=== PATIENT | female | born 1950 | race Caucasian/White ===

== ENCOUNTER 2017-04-11 12:58 | Emergency (ER) | payer MEDICARE, BC ==
[~2017-04-11] VITALS: Ht 160 cm; Wt 84.0 kg
[2017-04-11] MEDS ORDERED: ADDERALL5 MG PO (13:14)
[2017-04-11] MEDS ORDERED: MARINOL2.5 MG PO (13:19)
[2017-04-11] MEDS ORDERED: EC-NAPROSYN500 MG PO (13:23)
[2017-04-11] MEDS ORDERED: TRAMADOL HYDROC50 MG PO (13:23)
[2017-04-11 14:25] VITALS: BP 158/82
== END 2017-04-11 14:25 | disposition home or self-care (01) ==
LOC: ED 12:58
DX: S92.535A Nondisplaced fracture of distal phalanx of left lesser toe(s), initial encounter for closed fracture (principal); S92.415A Nondisplaced fracture of proximal phalanx of left great toe, initial encounter for closed fracture; W22.8XXA Striking against or struck by other objects, initial encounter; Y93.89 Activity, other specified; Y93.16 Activity, rowing, canoeing, kayaking, rafting and tubing; Y92.007 Garden or yard of unspecified non-institutional (private) residence as the place of occurrence of the external cause